=== PATIENT | female | born 1995 | race Hispanic/Latino ===

== ENCOUNTER 2021-03-04 09:06 | Outpatient (CLI) | payer OTHER ==
[2021-03-04 18:44] LABS: SARS-CoV-2 PCR by NAA Not Detected (NotDetected)
== END 2021-03-04 09:07 | disposition home or self-care (01) ==
LOC: CSHLAB 09:06
PROVIDERS: ATTEND Family Medicine
DX: Z20.822 Contact with and (suspected) exposure to COVID-19 (principal)
CPT/HCPCS: 87635; U0003; U0005

== ENCOUNTER 2021-03-08 09:30 | Inpatient (IN) | payer OTHER, MEDICAID ==
[2021-03-08] MEDS: Lactated Ringer's 1,000 ML IV SCH ×2 (10:30→13:21)
[2021-03-08 10:42] VITALS: BMI 26.0
[2021-03-08] MEDS ORDERED: hydrALAZINE 20 MG/ML VIAL SLOW IVP PRN ×2 (10:46→18:21)
[2021-03-08] MEDS ORDERED: Ondansetron PF 4 MG/2 ML Vial IVP PRN ×2 (10:46→18:21)
[2021-03-08] MEDS ORDERED: Famotidine/PF 20 mg/2ml Vial SLOW IVP PRN (10:46)
[2021-03-08] MEDS ORDERED: CEFAZOLIN 2 GM in Premix Bag 1 BAG IVPB SCH (10:46)
[2021-03-08] MEDS ORDERED: Bicitra 30 ML UDCUP PO PRN (10:46)
[2021-03-08] MEDS ORDERED: Promethazine HCl 25 MG/ML VIAL IM PRN ×2 (10:46→18:21)
[2021-03-08 11:02] LABS: Hemoglobin 12.5 g/dL (12.0-15.5); Mean Corpuscular HGB CONC 33.6 g/dL (32.0-36.0); Mean Corpuscular Hemoglobin 32.3 pg (27.0-33.0); Mean Corpuscular Volume 96.1 fl (81.6-98.3); Mean Platelet Volume 11.5 fl (7.4-10.4); Platelet Count 183 10x3/uL (150-450); RBC Distribution Width 13.8 % (11.5-14.5); Red Blood Cell (RBC) Count 3.87 10x6/uL (3.90-5.03); White Blood Cell (WBC) Count 10.8 10x3/uL (3.5-10.5)
[2021-03-08 11:28] LABS: Hep B Surf Ag Non-Reactive S/CO (NonReactive); Syphilis Antibody Nonreactive (Nonreactive)
[2021-03-08 12:06] LABS: HBSAg Index 0.25 S/CO (0-0.99)
[2021-03-08] MEDS ORDERED: Oxytocin 10 UNITS/ML VIAL ONE ×3 (15:45→16:13)
[2021-03-08] MEDS ORDERED: Ondansetron PF 4 MG/2 ML Vial ONE (15:46)
[2021-03-08] MEDS ORDERED: Morphine PF 10 MG/10 ML VIAL ONE (15:49)
[2021-03-08] MEDS ORDERED: ePHEDrine Sulfate 50 MG/10 ML VIAL ONE (16:00)
[2021-03-08] MEDS ORDERED: HYDROcodone/Acetaminophen 5/325 mg Tablet PO PRN (18:21)
[2021-03-08] MEDS ORDERED: Bisacodyl 10 MG SUPP PR PRN (18:21)
[2021-03-08] MEDS ORDERED: Meperidine HCl/PF 25 MG/ML VIAL IM PRN (18:21)
[2021-03-08] MEDS ORDERED: NS w/ Oxytocin 30 units 500 ML IV SCH (18:21)
[2021-03-08] MEDS ORDERED: Lanolin Ointment 7 GM TUBE TOP PRN (18:21)
[2021-03-08] MEDS ORDERED: Acetaminophen 325 MG TAB PO PRN (18:21)
[2021-03-08] MEDS ORDERED: diphenhydrAMINE 25 MG CAP PO PRN (18:21)
[2021-03-08] MEDS ORDERED: Ketorolac Tromethamine 15 MG/ML VIAL ONE (18:36)
[2021-03-08] MEDS: Docusate Calcium (SURFAK) 240 MG CAP PO SCH (22:26)
[2021-03-08] MEDS ORDERED: Ketorolac Tromethamine 30 MG/ML VIAL IVP SCH (23:00)
[2021-03-09] MEDS: Ketorolac Tromethamine 30 MG/ML VIAL IVP SCH ×3 (03:14→15:32)
[2021-03-09 06:17] LABS: Mean Corpuscular HGB CONC 33.3 g/dL (32.0-36.0); Mean Corpuscular Hemoglobin 31.7 pg (27.0-33.0); Mean Platelet Volume 11.3 fl (7.4-10.4); Platelet Count 160 10x3/uL (150-450); RBC Distribution Width 13.4 % (11.5-14.5); Red Blood Cell (RBC) Count 3.79 10x6/uL (3.90-5.03); White Blood Cell (WBC) Count 10.4 10x3/uL (3.5-10.5)
[2021-03-09] MEDS: Ferrous Sulfate 325 MG TAB PO SCH ×2 (07:11→21:51)
[2021-03-09] MEDS ORDERED: Adacel (T-DAP) 0.5 ML SYRINGE IM ONE (09:00)
[2021-03-09] MEDS: Prenatal Vitamin 1 TAB PO SCH (09:16)
[2021-03-09] MEDS: Docusate Calcium (SURFAK) 240 MG CAP PO SCH ×2 (09:16→21:46)
[2021-03-09] MEDS: HYDROcodone/Acetaminophen 5/325 mg Tablet PO PRN ×3 (11:06→23:48)
[2021-03-09] MEDS: Ibuprofen 800 MG TAB PO SCH ×2 (15:33→21:48)
[2021-03-10] MEDS: Ibuprofen 800 MG TAB PO SCH ×3 (05:06→21:52)
[2021-03-10] MEDS: HYDROcodone/Acetaminophen 5/325 mg Tablet PO PRN ×3 (05:07→16:55)
[2021-03-10] MEDS: Ferrous Sulfate 325 MG TAB PO SCH ×2 (08:09→21:53)
[2021-03-10] MEDS: Prenatal Vitamin 1 TAB PO SCH (08:32)
[2021-03-10] MEDS: Docusate Calcium (SURFAK) 240 MG CAP PO SCH ×2 (08:33→21:52)
[2021-03-11] MEDS: Ibuprofen 800 MG TAB PO SCH (06:40)
[2021-03-11 08:15] VITALS: BP 105/69; TEMP 97.6
[2021-03-11] MEDS: Prenatal Vitamin 1 TAB PO SCH (08:28)
[2021-03-11] MEDS: HYDROcodone/Acetaminophen 5/325 mg Tablet PO PRN (08:28)
[2021-03-11] MEDS: Docusate Calcium (SURFAK) 240 MG CAP PO SCH (08:28)
[2021-03-11] MEDS: Ferrous Sulfate 325 MG TAB PO SCH (09:51)
== END 2021-03-11 14:00 | disposition home or self-care (01) | DRG 788 ==
LOC: CSHLD 09:30 → CSHPP 18:55
PROVIDERS: ADMIT Family Medicine; ATTEND Family Medicine
PROC: 10D00Z1 Extraction of Products of Conception, Low, Open Approach (ICD-10-PCS; principal; 2021-03-08)
DX: O34.211 Maternal care for low transverse scar from previous cesarean delivery (principal); Z3A.39 39 weeks gestation of pregnancy; Z37.0 Single live birth; Z20.822 Contact with and (suspected) exposure to COVID-19
CPT/HCPCS: 36415; 51702; 85027; 86780; 86850; 86900; 86901; 87340; J0690; J1885; J2274; J2405